=== PATIENT | female | born 1990 | race Caucasian/White ===

== ENCOUNTER 2019-03-29 00:58 | Emergency (ER) | payer MEDICAID ==
[2019-03-29] MEDS ORDERED: Ketorolac 60 MG/2 ML SDV IM ONE (01:43)
--- NOTE | 2019-03-29 01:47 | EDM.PDOC ---
ED HPI GENERAL MEDICAL PROBLEM - General Stated Complaint: MIGRAINE Time Seen by Provider: 03/29/19 00:58 Source of Information: Reports: Patient History Limitations: Reports: No Limitations - History of Present Illness INITIAL COMMENTS - FREE TEXT/NARRATIVE: 29 y.o.w.f with intermittent atypical migraine, came to ed with bitemporal H/ A and mild nausea. Pt had those issues several times in the past. Pt denies . Has mild nausea, h/a is rated as a 7/10. No photophobia, no trauma. No SOB, no CP or any other acute med issues. BP 112/71 Pulse 61, Temp 98.3 Pulse 100% on RA RR 15 Onset Date: 03/28/19 Onset Time: 22:00 Duration: Hour(s):, Constant Location: Reports: Head Quality: Reports: Ache, Dull, Same as Previous Episode Severity: Moderate Improves with: Reports: Medication Worsens with: Reports: Other (light) Context: Reports: Other Associated Symptoms: Reports: Other (nausea) ED ROS GENERAL - Review of Systems Review Of Systems: See Below Constitutional: Reports: No Symptoms HEENT: Reports: No Symptoms Respiratory: Reports: No Symptoms Cardiovascular: Reports: No Symptoms Endocrine: Reports: No Symptoms GI/Abdominal: Reports: Nausea : Reports: No Symptoms Musculoskeletal: Reports: No Symptoms Skin: Reports: No Symptoms Neurological: Reports: Headache Psychiatric: Reports: No Symptoms Hematologic/Lymphatic: Reports: No Symptoms Immunologic: Reports: No Symptoms - Physical Exam Exam: See Below Exam Limited By: No Limitations General Appearance: Alert, WD/WN, Mild Distress, Thin Eye Exam: Bilateral Eye: Normal Inspection Ears: Normal External Exam Nose: Normal Inspection, Normal Mucosa Throat/Mouth: Normal Inspection, Normal Lips, Normal Voice, No Airway Compromise Head Exam: Atraumatic, Normocephalic Neck: Normal Inspection, Supple, Non-Tender, Full Range of Motion Respiratory/Chest: No Respiratory Distress, Lungs Clear, Normal Breath Sounds, Chest Non-Tender Cardiovascular: Normal Peripheral Pulses, Regular Rate, Rhythm, No Edema, No Gallop, No Murmur GI/Abdominal: Normal Bowel Sounds, Soft, Non-Tender, No Organomegaly, No Abnormal Bruit, No Mass, Pelvis Stable (Female) Exam: Deferred Rectal (Female) Exam: Deferred Neuro Exam (Abbreviated): Alert, Oriented, CN II-XII Intact, Normal Cognition, Normal Gait Back Exam: Normal Inspection, Full Range of Motion Extremities: Normal Inspection, Normal Range of Motion, Non-Tender Psychiatric: Normal Affect, Normal Mood Skin Exam: Warm, Dry, Intact, Normal Color, No Rash Course - Vital Signs Text/Narrative:: 29 y.o.w.f with intermittent atypical migraine, came to ed with bitemporal H/ A and mild nausea. Pt had those issues several times in the past. Pt denies . Has mild nausea, h/a is rated as a 7/10. No photophobia, no trauma. No SOB, no CP or any other acute med issues. BP 112/71 Pulse 61, Temp 98.3 Pulse 100% on RA RR 15 PE: WNWD W F with H/A Impression: Tension H/A Tx: Zofran, Toradol Reexam: Pt improved 100% on RA Plan: D/C with instructions - Orders/Labs/Meds Meds: Medications Discontinued Medications Generic Name Dose Route Start Last Admin Trade Name Jose PRN Reason Stop Dose Admin Ketorolac Tromethamine 60 mg 03/29/19 01:43 03/29/19 02:05 Toradol IM 03/29/19 01:44 60 mg ONETIME ONE Administration Ondansetron HCl 8 mg 03/29/19 02:01 03/29/19 02:05 Zofran Odt PO 03/29/19 02:02 8 mg ONETIME ONE Administration Departure - Departure Time of Disposition: 02:02 Disposition: Home, Self-Care 01 Condition: Good Clinical Impression: Tension type headache Qualifiers: Headache chronicity pattern: unspecified pattern Intractability: not intractable Qualified Code(s): G44.209 - Tension-type headache, unspecified, not intractable - Discharge Information Referrals: PCP,Unknown [Primary Care Provider] - Forms: ED Return to Work/School Form Additional Instructions: Please continue your current meds, please f/u with your PMD, come back if your symptoms get worse acutely.
[2019-03-29] MEDS ORDERED: Ondansetron 8 MG Tab.DIS PO ONE (02:01)
== END 2019-03-29 02:10 | disposition home or self-care (01) ==
LOC: FB.ED 00:58
DX: G44.209 Tension-type headache, unspecified, not intractable (principal)
CPT/HCPCS: 96372; 99283; A9270; J1885

== ENCOUNTER 2019-04-10 21:56 | Emergency (ER) | payer MEDICAID ==
[2019-04-10] MEDS ORDERED: Ketorolac 60 MG/2 ML SDV IM ONE (23:46)
--- NOTE | 2019-04-10 23:48 | EDM.PDOC ---
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 She states this evening and has continued to worsen and it hurts when she walks. She also feels a little bit nauseous and notes that it hurts when she urinates. She has had a few chills and sweats, but no fever. She initially thought the pain was cramps since she hasn't changed her NuvaRing at this month and didn't take it out for a few days like she usually does. She has not noticed any urgency or burning with urination. She does not have any back or flank pain, no fever. She has no history of ovarian cysts. She did have one loose stool this afternoon and otherwise her bowels have been regular. She has an extensive history of bladder and kidney infections and a diagnosis of interstitial cystitis. She is not on any immunosuppressants. She is sexually active with one partner, states he is new. Has not been STD tested recently. No abnormal vaginal discharge. - Related Data Allergies Allergy/AdvReac Type Severity Reaction Status Date / Time cefaclor [From Ceclor] Allergy Cannot Verified 04/10/19 23:56 Remember levofloxacin [From Levaquin] Allergy Rash Verified 04/10/19 23:56 rizatriptan [From Maxalt] Allergy Nausea Verified 04/10/19 23:56 sumatriptan Allergy Nausea Verified 04/10/19 23:56 Home Meds: Home Meds .Cranberry 1 tab PO ASDIRECTED 03/30/19 [History] .Nuvaring Vaginal Ring 1 dose VAG ONETIME 03/30/19 [History] DULoxetine [Cymbalta] 60 mg PO DAILY 03/30/19 [History] LORazepam 1 mg PO ASDIRECTED PRN 03/30/19 [History] Loratadine 10 mg PO DAILY PRN 03/30/19 [History] Mirtazapine 7.5 mg PO BEDTIME 03/30/19 [History] Nitrofurantoin Macrocrystal [Macrodantin] 100 mg PO DAILY 03/30/19 [History] Omeprazole 20 mg PO DAILY 03/30/19 [History] Ondansetron HCl [Ondansetron] 4 mg PO Q8H 03/30/19 [History] Pentosan Polysulfate Sodium [Elmiron] 100 mg PO TID 03/30/19 [History] Prazosin [Minpress] 1 mg PO DAILY 03/30/19 [History] Sennosides/Docusate Sodium [Senexon-S Tablet] 1 each PO DAILY 03/30/19 [History] buPROPion HCl [Wellbutrin Xl] 300 mg PO DAILY 03/30/19 [History] busPIRone [Buspar] 10 mg PO BID 03/30/19 [History] Sulfamethoxazole/Trimethoprim [Bactrim Ds Tablet] 1 each PO BID 7 Days #14 tablet 04/11/19 [Rx] Past Medical History Gastrointestinal History: Reports: GERD Genitourinary History: Reports: UTI, Recurrent Other Genitourinary History: Interstitial cystitis. 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 ED EXAM, GENERAL - Physical Exam Exam: See Below Free Text/Narrative:: Gen.: Alert, pleasant not acutely distressed. Tubals are equal and reactive, neck is supple. Heart regular rate and rhythm, lungs are clear throughout. Abdomen positive bowel sounds, soft nondistended nontender except in the right lower quadrant, no rebound or guarding. Negative Ash's sign. Pelvic exam shows normal external female genitalia, cervix is visualized and there is a small amount of whitish physiologic discharge in the vaginal vault. Bimanual exam shows no cervical motion tenderness and very minimal tenderness in the right adnexal area which is difficult to reproduce reliably. The left side does not have any adnexal tenderness and no masses are palpable. Peripheral pulses + 2 in both the upper and lower extremities and there is no lower extremity edema. Her gait is normal and her strength is equal side to side. She does not have any abnormal skin rashes or lesions Course - Vital Signs Text/Narrative:: Initial impression- possible UTI but not really consistent symptoms, appendix, ovarian torsion or cyst rupture. Will get labs, urinalysis and test. Set up for pelvic and will do GC testing also - Orders/Labs/Meds Orders: Active Orders 24 hr Category Date Time Status CHLAMYDIA/GC AMPLIFICATION Urgent Lab 04/10/19 23:45 Received CHLAMYDIA/GC AMPLIFICATION Urgent Lab 04/11/19 00:28 Ordered CULTURE URINE [RM] Stat Lab 04/11/19 00:50 Ordered Labs: Laboratory Tests 04/10/19 04/10/19 04/10/19 Range/Units 23:05 23:05 23:05 WBC 11.8 (4.5-12.0) X10-3/uL RBC 4.49 (3.23-5.20) x10(6)uL Hgb 12.9 (11.5-15.5) g/dL Hct 38.1 (30.0-51.3) % MCV 84.7 (80-96) fL MCH 28.8 (27.7-33.6) pg MCHC 34.0 (32.2-35.4) g/dL RDW 13.6 (11.5-15.5) % Plt Count 187 (125-369) X10(3)uL MPV 11.7 H (7.4-10.4) fL Neut % (Auto) 63.7 (46-82) % Lymph % (Auto) 28.9 (13-37) % Peach % (Auto) 6.4 (4-12) % Eos % (Auto) 0 L (1.0-5.0) % Baso % (Auto) 1 (0-2) % Neut # (Auto) 7.5 (1.6-8.3) # Lymph # (Auto) 3.4 (0.6-5.0) # Peach # (Auto) 0.8 (0.0-1.3) # Eos # (Auto) 0.0 (0.0-0.8) # Baso # (Auto) 0.1 (0.0-0.2) # Sodium 141 (135-145) mmol/L Potassium 3.8 (3.5-5.3) mmol/L Chloride 107 (100-110) mmol/L Carbon Dioxide 25 (21-32) mmol/L BUN 11 (7-18) mg/dL Creatinine 0.9 (0.55-1.02) mg/dL Est Cr Clr Drug Dosing TNP Estimated GFR (MDRD) > 60 (>60) BUN/Creatinine Ratio 12.2 (9-20) Glucose 89 (80-116) mg/dL Calcium 9.1 (8.6-10.2) mg/dL Total Bilirubin 0.3 (0.1-1.3) mg/dL AST 16 (5-25) IU/L ALT 27 (12-36) U/L Alkaline Phosphatase 89 (56-112) IU/L C-Reactive Protein 1.8 H (0.5-0.9) mg/dL Total Protein 7.3 (6.0-8.0) g/dL Albumin 3.5 (3.5-5.2) g/dL Globulin 3.8 g/dL Albumin/Globulin Ratio 0.9 Urine Color (YELLOW) Urine Appearance (CLEAR) Urine pH (5.0-6.5) Ur Specific [place] (1.010-1.025) Urine Protein (NEGATIVE) mg/dL Urine Glucose (UA) (NORMAL) mg/dL Urine Ketones (NEGATIVE) mg/dL Urine Occult Blood (NEGATIVE) Urine Nitrite (NEGATIVE) Urine Bilirubin (NEGATIVE) Urine Urobilinogen (NEGATIVE) mg/dL Ur Leukocyte Esterase (NEGATIVE) Urine RBC (0-5) Urine WBC (0-5) Ur Squamous Epith Cells (NS,R,O) Urine Bacteria (NS) Urine HCG, Qual (NEGATIVE) 04/10/19 04/10/19 Range/Units 23:45 23:45 WBC (4.5-12.0) X10-3/uL RBC (3.23-5.20) x10(6)uL Hgb (11.5-15.5) g/dL Hct (30.0-51.3) % MCV (80-96) fL MCH (27.7-33.6) pg MCHC (32.2-35.4) g/dL RDW (11.5-15.5) % Plt Count (125-369) X10(3)uL MPV (7.4-10.4) fL Neut % (Auto) (46-82) % Lymph % (Auto) (13-37) % Peach % (Auto) (4-12) % Eos % (Auto) (1.0-5.0) % Baso % (Auto) (0-2) % Neut # (Auto) (1.6-8.3) # Lymph # (Auto) (0.6-5.0) # Peach # (Auto) (0.0-1.3) # Eos # (Auto) (0.0-0.8) # Baso # (Auto) (0.0-0.2) # Sodium (135-145) mmol/L Potassium (3.5-5.3) mmol/L Chloride (100-110) mmol/L Carbon Dioxide (21-32) mmol/L BUN (7-18) mg/dL Creatinine (0.55-1.02) mg/dL Est Cr Clr Drug Dosing Estimated GFR (MDRD) (>60) BUN/Creatinine Ratio (9-20) Glucose (80-116) mg/dL Calcium (8.6-10.2) mg/dL Total Bilirubin (0.1-1.3) mg/dL AST (5-25) IU/L ALT (12-36) U/L Alkaline Phosphatase (56-112) IU/L C-Reactive Protein (0.5-0.9) mg/dL Total Protein (6.0-8.0) g/dL Albumin (3.5-5.2) g/dL Globulin g/dL Albumin/Globulin Ratio Urine Color Yellow (YELLOW) Urine Appearance Slightly cloudy (CLEAR) Urine pH 5.0 (5.0-6.5) Ur Specific [place] 1.010 (1.010-1.025) Urine Protein Negative (NEGATIVE) mg/dL Urine Glucose (UA) Normal (NORMAL) mg/dL Urine Ketones Negative (NEGATIVE) mg/dL Urine Occult Blood Trace (NEGATIVE) Urine Nitrite Negative (NEGATIVE) Urine Bilirubin Negative (NEGATIVE) Urine Urobilinogen Normal (NEGATIVE) mg/dL Ur Leukocyte Esterase Moderate H (NEGATIVE) Urine RBC 0-5 (0-5) Urine WBC 40-50 H (0-5) Ur Squamous Epith Cells Moderate H (NS,R,O) Urine Bacteria Few H (NS) Urine HCG, Qual Negative (NEGATIVE) Meds: Medications Discontinued Medications Generic Name Dose Route Start Last Admin Trade Name Jose PRN Reason Stop Dose Admin Ketorolac Tromethamine 60 mg 04/10/19 23:46 04/10/19 23:55 Toradol IM 04/10/19 23:47 60 mg ONETIME ONE Administration Trimethoprim/Sulfamethoxazole 1 tab 04/11/19 00:46 04/11/19 00:55 Septra Ds PO 04/11/19 00:47 1 tab ONETIME ONE Administration - Re-Assessments/Exams Free Text/Narrative Re-Assessment/Exam: 04/11/19 pelvic exam completed, no signs of PID or abnormal vaginal discharge. Slight right adnexal tenderness but not marked. Labs reviewed, within normal limits except for mildly elevated CRP, test negative, urinalysis concerning for infection. Nitrates negative but she did urinate within the last hour prior to collection. Toradol shot given with some improvement in pain. She already has Zofran at home as well. Free Text/Narrative Re-Assessment/Exam: 04/11/19 discussed discharge home with treatment for UTI. She does not know of any past cultures which showed resistance, but states she usually needs a longer course than the standard. She is familiar with symptoms of pyelonephritis. Discussed that if her pain does not improve, she should follow up in clinic or call her regular doctor, if severe symptoms return to ER. We do not have ultrasound capability here over the weekend and I don't think a CT would give enough information. Very unlikely to be appendicitis given her normal white count. 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 7 day course prescribed. Departure - Departure Time of Disposition: 00:41 Disposition: Home, Self-Care 01 Condition: Good Clinical Impression: Cystitis - Discharge Information *PRESCRIPTION DRUG MONITORING PROGRAM REVIEWED*: Not Applicable *COPY OF PRESCRIPTION DRUG MONITORING REPORT IN PATIENT JAYJAY: Not Applicable Prescriptions: Sulfamethoxazole/Trimethoprim [Bactrim Ds Tablet] 1 each PO BID 7 Days #14 tablet Instructions: Urinary Tract Infection, Adult Referrals: PCP,None [Primary Care Provider] - Forms: ED Department Discharge Additional Instructions: start antibiotic - first dose given here, then pickup in morning and take twice daily until gone (max daily dose of this medication) drink LOTS of water pelvic US not available Saturday-- if still having pain -- call PCP or can be seen in walk-in clinic for them to set up somewhere else in town if symptoms of fever, vomiting, worsening nausea, back or flank pain, need to be re-evaluated by physician. - My Orders Last 24 Hours: My Active Orders 04/10/19 23:45 CHLAMYDIA/GC AMPLIFICATION Urgent 04/11/19 00:28 CHLAMYDIA/GC AMPLIFICATION Urgent 04/11/19 00:50 CULTURE URINE [RM] Stat - Assessment/Plan Last 24 Hours: My Active Orders 04/10/19 23:45 CHLAMYDIA/GC AMPLIFICATION Urgent 04/11/19 00:28 CHLAMYDIA/GC AMPLIFICATION Urgent 04/11/19 00:50 CULTURE URINE [RM] Stat
[2019-04-11] MEDS ORDERED: Sulfamethoxazole/Trimethoprim 800-160 MG Tab PO ONE (00:46)
[2019-04-15 10:12] LABS: CHLAMYDIA TRACHOMATIS, NAA Negative (Negative); NEISSERIA GONORRHOEAE, NAA Negative (Negative)
== END 2019-04-11 01:00 | disposition home or self-care (01) ==
LOC: FB.ED 21:56
DX: N30.90 Cystitis, unspecified without hematuria (principal); K21.9 Gastro-esophageal reflux disease without esophagitis; F41.9 Anxiety disorder, unspecified; Z88.1 Allergy status to other antibiotic agents; Z79.899 Other long term (current) drug therapy
CPT/HCPCS: 36415; 80053; 81001; 81025; 85025; 86140; 87086; 87088; 87186; 87491; 87591; 96372; 99283; A9270; J1885

== ENCOUNTER 2020-05-29 23:01 | Emergency (ER) | payer MEDICAID ==
[2020-05-29] MEDS ORDERED: Sodium Chloride 0.9% 10 ML Syringe FLUSH PRN (23:05)
[2020-05-29] MEDS ORDERED: LORazepam 2 MG/ML SDV IVPUSH STA (23:10)
[2020-05-29] MEDS ORDERED: Aspirin 81 MG Tab.Chew PO ONE (23:10)
[2020-05-29] MEDS ORDERED: Ketorolac 30 MG/ML SDV IVPUSH ONE (23:10)
[2020-05-29] MEDS ORDERED: Metoprolol Tartrate 5 MG/5 ML SDV IVPUSH ONE (23:25)
--- NOTE | 2020-05-29 23:25 | EDM.PDOC ---
ED HPI GENERAL MEDICAL PROBLEM - General Stated Complaint: CHEST PAIN Time Seen by Provider: 05/29/20 23:05 Source of Information: Reports: Patient History Limitations: Reports: No Limitations - History of Present Illness INITIAL COMMENTS - FREE TEXT/NARRATIVE: Patient presented to the ED because of chest pain,7/10 , over the left chest area. Sharp and pleuritic in character with associated dyspnea. there is no nausea/vomiting, fever,chills, or cough and cold. She was diagnosed with Covid 2 weeks ago. - Related Data Allergies Allergy/AdvReac Type Severity Reaction Status Date / Time cefaclor [From Ceclor] Allergy Cannot Verified 04/10/19 23:56 Remember levofloxacin [From Levaquin] Allergy Rash Verified 04/10/19 23:56 rizatriptan [From Maxalt] Allergy Nausea Verified 04/10/19 23:56 sumatriptan Allergy Nausea Verified 04/10/19 23:56 Home Meds: Home Meds .Cranberry 1 tab PO ASDIRECTED 03/30/19 [History] .Nuvaring Vaginal Ring 1 dose VAG ONETIME 03/30/19 [History] DULoxetine [Cymbalta] 60 mg PO DAILY 03/30/19 [History] LORazepam 1 mg PO ASDIRECTED PRN 03/30/19 [History] Loratadine 10 mg PO DAILY PRN 03/30/19 [History] Mirtazapine 7.5 mg PO BEDTIME 03/30/19 [History] Omeprazole 20 mg PO DAILY 03/30/19 [History] Pentosan Polysulfate Sodium [Elmiron] 100 mg PO TID 03/30/19 [History] Prazosin [Minpress] 1 mg PO DAILY 03/30/19 [History] Sennosides/Docusate Sodium [Senexon-S Tablet] 1 each PO DAILY 03/30/19 [History] buPROPion HCL [Wellbutrin Xl] 300 mg PO DAILY 03/30/19 [History] busPIRone [Buspar] 10 mg PO BID 03/30/19 [History] nitrofurantoin macrocrystaL [Macrodantin] 100 mg PO DAILY 03/30/19 [History] ondansetron HCL [Ondansetron] 4 mg PO Q8H 03/30/19 [History] Sulfamethoxazole/Trimethoprim [Bactrim Ds Tablet] 1 each PO BID 7 Days #14 tablet 04/11/19 [Rx] Past Medical History Gastrointestinal History: Reports: GERD Genitourinary History: Reports: UTI, Recurrent Other Genitourinary History: Interstitial cystitis. 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 Musculoskeletal History: Reports: Arthritis, Fibromyalgia Neurological History: Reports: Migraines Psychiatric History: Reports: Anxiety, PTSD Social & Family History - Family History Family Medical History: Noncontributory - Caffeine Use Caffeine Use: Reports: Coffee - Living Situation & Occupation Living situation: Reports: with Significant Other ( New partner) Occupation: Employed ED ROS GENERAL - Review of Systems Review Of Systems: See Below Constitutional: Reports: No Symptoms HEENT: Reports: No Symptoms Respiratory: Reports: No Symptoms Cardiovascular: Reports: Chest Pain Endocrine: Reports: No Symptoms GI/Abdominal: Reports: No Symptoms : Reports: No Symptoms Musculoskeletal: Reports: No Symptoms Skin: Reports: No Symptoms Neurological: Reports: No Symptoms Psychiatric: Reports: No Symptoms Hematologic/Lymphatic: Reports: No Symptoms ED EXAM, GENERAL - Physical Exam Exam: See Below Exam Limited By: No Limitations General Appearance: Alert, No Apparent Distress Ears: Normal External Exam Nose: Normal Inspection, Normal Mucosa Throat/Mouth: Normal Inspection, Normal Lips, Normal Teeth, Normal Gums Head: Atraumatic, Normocephalic Neck: Normal Inspection, Supple, Non-Tender, Full Range of Motion Respiratory/Chest: No Respiratory Distress, Lungs Clear, Normal Breath Sounds Cardiovascular: Normal Peripheral Pulses, Regular Rate, Rhythm, No Edema, No Gallop, No JVD, No Murmur, Tachycardia GI/Abdominal: Normal Bowel Sounds, Soft, Non-Tender, No Organomegaly Back Exam: Normal Inspection, Full Range of Motion Course - Vital Signs Text/Narrative:: Labs/EKG/CXR result was discussed with patient ASA 24 mg p[o x1 Ativan 1 mg IV x1 Toradol 30 mg IV x1 - Orders/Labs/Meds Orders: Active Orders 24 hr Category Date Time Status EKG Documentation Completion [RC] ASDIRECTED Care 05/29/20 23:07 Active Chest 1V Frontal [CR] Stat Exams 05/29/20 23:06 Ordered Sodium Chloride 0.9% [Saline Flush] Med 05/29/20 23:05 Active 10 ml FLUSH ASDIRECTED PRN Saline Lock Insert [OM.PC] Routine Oth 05/29/20 23:05 Ordered EKG 12 Lead [EK] Routine Ther 05/29/20 23:06 Ordered Medication Orders Sodium Chloride (Saline Flush) 10 ml FLUSH ASDIRECTED PRN PRN Reason: Keep Vein Open Labs: Laboratory Tests 05/29/20 05/29/20 05/29/20 Range/Units 23:15 23:15 23:15 WBC 10.6 (4.5-12.0) X10-3/uL RBC 4.77 (3.23-5.20) x10(6)uL Hgb 13.4 (11.5-15.5) g/dL Hct 41.8 (30.0-51.3) % MCV 87.8 (80-96) fL MCH 28.0 (27.7-33.6) pg MCHC 31.9 L (32.2-35.4) g/dL RDW 13.1 (11.5-15.5) % Plt Count 133 (125-369) X10(3)uL MPV 10.7 H (7.4-10.4) fL Add Manual Diff Yes Neutrophils % (Manual) 29 L (46-82) % Lymphocytes % (Manual) 65 H (13-37) % Monocytes % (Manual) 3 L (4-12) % Eosinophils % (Manual) 2 (0-5) % Basophils % (Manual) 1 (0-2) % Sodium 140 (135-145) mmol/L Potassium 4.0 (3.5-5.3) mmol/L Chloride 103 (100-110) mmol/L Carbon Dioxide 27 (21-32) mmol/L BUN 8 (7-18) mg/dL Creatinine 0.9 (0.55-1.02) mg/dL Est Cr Clr Drug Dosing TNP Estimated GFR (MDRD) > 60 (>60) BUN/Creatinine Ratio 8.9 L (9-20) Glucose 92 (80-116) mg/dL Calcium 8.5 L (8.6-10.2) mg/dL Total Bilirubin 0.3 (0.1-1.3) mg/dL AST 18 D (5-25) IU/L ALT 13 D (12-36) U/L Alkaline Phosphatase 89 (56-112) IU/L Troponin I 5.0 (4.0-60.3) pg/mL Total Protein 7.8 (6.0-8.0) g/dL Albumin 3.6 (3.5-5.2) g/dL Globulin 4.2 g/dL Albumin/Globulin Ratio 0.9 Meds: Medications Generic Name Dose Route Start Last Admin Trade Name Cuateq PRN Reason Stop Dose Admin Sodium Chloride 10 ml 05/29/20 23:05 Saline Flush FLUSH ASDIRECTED PRN Keep Vein Open Discontinued Medications Generic Name Dose Route Start Last Admin Trade Name Jose PRN Reason Stop Dose Admin Aspirin 324 mg 05/29/20 23:10 Aspirin PO 05/29/20 23:11 ONETIME ONE Ketorolac Tromethamine 30 mg 05/29/20 23:10 Toradol IVPUSH 05/29/20 23:11 ONETIME ONE Lorazepam 1 mg 05/29/20 23:10 Ativan IVPUSH 05/29/20 23:11 NOW STA Metoprolol Tartrate 5 mg 05/29/20 23:25 Lopressor IVPUSH 05/29/20 23:26 ONETIME ONE Departure - Departure Time of Disposition: 00:30 Disposition: Home, Self-Care 01 Condition: Good Clinical Impression: Atypical chest pain, Anxiety Instructions: Nonspecific Chest Pain, Adult Additional Instructions: Please read discharge instructions on atypical chest pain and anxiety Take Naproxen 500 mg Twice daily for 7 days 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
[2020-05-30] MEDS ORDERED: Morphine 2 MG/ML SYRINGE IVPUSH ONE (00:13)
== END 2020-05-30 00:53 | disposition home or self-care (01) ==
LOC: FB.ED 23:01
DX: F41.9 Anxiety disorder, unspecified (principal); K21.9 Gastro-esophageal reflux disease without esophagitis; Z88.1 Allergy status to other antibiotic agents; Z88.8 Allergy status to other drugs, medicaments and biological substances; Z79.899 Other long term (current) drug therapy
CPT/HCPCS: 36415; 71045; 80053; 84484; 85025; 93005; 96374; 96375; 99285; A9270; J1885; J2060; J2270

== ENCOUNTER 2020-08-21 21:39 | Emergency (ER) | payer MEDICAID ==
--- NOTE | 2020-08-21 22:39 | EDM.PDOC ---
ED HPI GENERAL MEDICAL PROBLEM - General Chief Complaint: Neurological Problem Stated Complaint: seizure Time Seen by Provider: 08/21/20 22:10 Source of Information: Reports: Patient History Limitations: Reports: No Limitations - History of Present Illness INITIAL COMMENTS - FREE TEXT/NARRATIVE: States she had COVID in April: no concerns over that in last few months has be having seizures bid every week. Was seen by a neurologist and started on seizure med ( 2 weeks) has not has seizure till now states today she had migraine this am ( was normal migraine), Improved but this she went to lay down and then woke up with headache and the ambulance ready to take her to ER does not seem to recall anything states she has pain and numbness on the right side , was able to lift the right arm was not able to lift the left arm may have fallen on the right side and so has pain Onset: Today Onset Date: 08/21/20 Duration: Getting Worse Associated Symptoms: Reports: Headaches, Malaise, Weakness (states weakness on the right side of the body) front head Pain Score (Numeric/FACES): 6 - Related Data Allergies Allergy/AdvReac Type Severity Reaction Status Date / Time cefaclor [From Ceclor] Allergy Cannot Verified 04/10/19 23:56 Remember levofloxacin [From Levaquin] Allergy Rash Verified 04/10/19 23:56 rizatriptan [From Maxalt] Allergy Nausea Verified 04/10/19 23:56 sumatriptan Allergy Nausea Verified 04/10/19 23:56 Home Meds: Home Meds .Cranberry 1 tab PO ASDIRECTED 03/30/19 [History] .Nuvaring Vaginal Ring 1 dose VAG ONETIME 03/30/19 [History] DULoxetine [Cymbalta] 60 mg PO DAILY 03/30/19 [History] LORazepam 1 mg PO ASDIRECTED PRN 03/30/19 [History] Loratadine 10 mg PO DAILY PRN 03/30/19 [History] Mirtazapine 7.5 mg PO BEDTIME 03/30/19 [History] Omeprazole 20 mg PO DAILY 03/30/19 [History] Pentosan Polysulfate Sodium [Elmiron] 100 mg PO TID 03/30/19 [History] Prazosin [Minpress] 1 mg PO DAILY 03/30/19 [History] Sennosides/Docusate Sodium [Senexon-S Tablet] 1 each PO DAILY 03/30/19 [History] buPROPion HCL [Wellbutrin Xl] 300 mg PO DAILY 03/30/19 [History] busPIRone [Buspar] 10 mg PO BID 03/30/19 [History] nitrofurantoin macrocrystaL [Macrodantin] 100 mg PO DAILY 03/30/19 [History] ondansetron HCL [Ondansetron] 4 mg PO Q8H 03/30/19 [History] Sulfamethoxazole/Trimethoprim [Bactrim Ds Tablet] 1 each PO BID 7 Days #14 tablet 04/11/19 [Rx] Naproxen 500 mg PO BID #15 tablet 05/29/20 [Rx] Past Medical History HEENT History: Reports: Impaired Vision Gastrointestinal History: Reports: GERD Genitourinary History: Reports: UTI, Recurrent Other Genitourinary History: Interstitial cystitis. Recurrent UTI MUSIC SPECIALIST History: Reports: Spontaneous Musculoskeletal History: Reports: Arthritis, Fibromyalgia Neurological History: Reports: Migraines Psychiatric History: Reports: Anxiety, PTSD - Infectious Disease History Infectious Disease History: Reports: Chicken Pox Social & Family History - Family History Family Medical History: No Pertinent Family History - Caffeine Use Caffeine Use: Reports: Coffee - Living Situation & Occupation Living situation: Reports: with Significant Other ( New partner) Occupation: Employed ED ROS GENERAL - Review of Systems Review Of Systems: See Below Constitutional: Reports: Fatigue, Decreased Appetite. Denies: Fever, Chills, Malaise, Weakness HEENT: Reports: No Symptoms Respiratory: Reports: No Symptoms Cardiovascular: Reports: No Symptoms Endocrine: Reports: No Symptoms GI/Abdominal: Reports: Abdominal Pain, Constipation, Decreased Appetite. Denies: Nausea, Vomiting : Reports: No Symptoms Musculoskeletal: Reports: No Symptoms Skin: Reports: No Symptoms Neurological: Reports: Dizziness, Seizure. Denies: Trouble Speaking, Change in Speech, Gait Disturbance Psychiatric: Reports: No Symptoms Hematologic/Lymphatic: Reports: No Symptoms Immunologic: Reports: No Symptoms ED EXAM, NEURO - Physical Exam Exam: See Below Exam Limited By: No Limitations General Appearance: Alert, WD/WN, No Apparent Distress, Lethargic Ears: Normal External Exam Nose: Normal Inspection Throat/Mouth: Normal Oropharynx Head Exam: Atraumatic, Normocephalic Neck: Supple, Non-Tender Respiratory/Chest: No Respiratory Distress, Lungs Clear Cardiovascular: Normal Peripheral Pulses, Regular Rate, Rhythm GI/Abdominal: Soft, Non-Tender Neurological: Alert, Normal Mood/Affect Extremities: Normal Inspection Skin Exam: Warm Course - Vital Signs Last Recorded V/S: Last Vital Signs Temp 36.6 C 08/21/20 21:39 Pulse 85 08/21/20 21:39 Resp 20 08/21/20 21:39 BP 125/75 08/21/20 21:39 Pulse Ox 99 08/21/20 21:39 - Orders/Labs/Meds Orders: Active Orders 24 hr Category Date Time Status EKG Documentation Completion [RC] ASDIRECTED Care 08/21/20 22:07 Active Abdomen Pelvis w Cont [CT] Stat Exams 08/21/20 22:30 Taken Head wo Cont [CT] Stat Exams 08/21/20 22:05 Taken Magnesium Citrate [Citrate of Magnesia] Med 08/22/20 01:03 Once 296 ml PO ONETIME ONE EKG 12 Lead [EK] Routine Ther 08/21/20 22:07 Ordered Medication Orders Magnesium Citrate (Citrate Of Magnesia) 296 ml PO ONETIME ONE Stop: 08/22/20 01:04 Labs: Laboratory Tests 08/21/20 08/21/20 08/21/20 Range/Units 22:40 22:40 22:40 WBC 10.0 (3.0-10.3) x10-3/uL RBC 4.39 (3.60-5.20) x10(6)uL Hgb 12.6 (11.4-15.5) g/dL Hct 38.3 (34.2-48.2) % MCV 87.2 (76.7-100.5) fL MCH 28.6 (23.9-33.9) pg MCHC 32.8 (31.9-34.8) g/dL RDW 12.8 (12.3-16.5) % Plt Count 206 (151-488) x10(3)uL MPV 10.7 (7.1-12.4) fL Neut % (Auto) 44.3 (30.8-76.2) % Lymph % (Auto) 42.9 (18.4-52.1) % Glynn % (Auto) 10.6 (4.4-15.7) % Eos % (Auto) 1.4 (0.6-8.1) % Baso % (Auto) 0.8 (0.2-1.5) % Neut # (Auto) 4.4 (1.5-6.3) x10-3/uL Lymph # (Auto) 4.3 (1.0-4.4) x10-3/uL Glynn # (Auto) 1.1 H (0.3-1.0) x10-3/uL Eos # (Auto) 0.1 (0.0-0.8) x10-3/uL Baso # (Auto) 0.1 (0.0-0.1) x10-3/uL PT 9.6 (9.0-11.1) sec INR 0.88 L (1.00-1.24) Sodium 140 (135-145) mmol/L Potassium 3.8 (3.5-5.3) mmol/L Chloride 104 (100-110) mmol/L Carbon Dioxide 25 (21-32) mmol/L BUN 14 (7-18) mg/dL Creatinine 0.8 (0.55-1.02) mg/dL Est Cr Clr Drug Dosing TNP Estimated GFR (MDRD) > 60 (>60) BUN/Creatinine Ratio 17.5 (9-20) Glucose 98 (80-116) mg/dL Calcium 8.6 (8.6-10.2) mg/dL Total Bilirubin 0.2 (0.1-1.3) mg/dL AST 11 D (5-25) IU/L ALT 14 (12-36) U/L Alkaline Phosphatase 103 (56-112) IU/L Total Protein 7.0 (6.0-8.0) g/dL Albumin 3.3 L (3.5-5.2) g/dL Globulin 3.7 g/dL Albumin/Globulin Ratio 0.9 Urine Color (YELLOW) Urine Appearance (CLEAR) Urine pH (5.0-6.5) Ur Specific [place] (1.010-1.025) Urine Protein (NEGATIVE) mg/dL Urine Glucose (UA) (NORMAL) mg/dL Urine Ketones (NEGATIVE) mg/dL Urine Occult Blood (NEGATIVE) Urine Nitrite (NEGATIVE) Urine Bilirubin (NEGATIVE) Urine Urobilinogen (NEGATIVE) mg/dL Ur Leukocyte Esterase (NEGATIVE) Urine RBC (0-5) Urine WBC (0-5) Ur Squamous Epith Cells (NS,R,O) Urine Bacteria (NS) Urine HCG, Qual (NEGATIVE) 08/21/20 08/21/20 Range/Units 23:09 23:09 WBC (3.0-10.3) x10-3/uL RBC (3.60-5.20) x10(6)uL Hgb (11.4-15.5) g/dL Hct (34.2-48.2) % MCV (76.7-100.5) fL MCH (23.9-33.9) pg MCHC (31.9-34.8) g/dL RDW (12.3-16.5) % Plt Count (151-488) x10(3)uL MPV (7.1-12.4) fL Neut % (Auto) (30.8-76.2) % Lymph % (Auto) (18.4-52.1) % Glynn % (Auto) (4.4-15.7) % Eos % (Auto) (0.6-8.1) % Baso % (Auto) (0.2-1.5) % Neut # (Auto) (1.5-6.3) x10-3/uL Lymph # (Auto) (1.0-4.4) x10-3/uL Glynn # (Auto) (0.3-1.0) x10-3/uL Eos # (Auto) (0.0-0.8) x10-3/uL Baso # (Auto) (0.0-0.1) x10-3/uL PT (9.0-11.1) sec INR (1.00-1.24) Sodium (135-145) mmol/L Potassium (3.5-5.3) mmol/L Chloride (100-110) mmol/L Carbon Dioxide (21-32) mmol/L BUN (7-18) mg/dL Creatinine (0.55-1.02) mg/dL Est Cr Clr Drug Dosing Estimated GFR (MDRD) (>60) BUN/Creatinine Ratio (9-20) Glucose (80-116) mg/dL Calcium (8.6-10.2) mg/dL Total Bilirubin (0.1-1.3) mg/dL AST (5-25) IU/L ALT (12-36) U/L Alkaline Phosphatase (56-112) IU/L Total Protein (6.0-8.0) g/dL Albumin (3.5-5.2) g/dL Globulin g/dL Albumin/Globulin Ratio Urine Color Yellow (YELLOW) Urine Appearance Clear (CLEAR) Urine pH 5.0 (5.0-6.5) Ur Specific [place] 1.010 (1.010-1.025) Urine Protein Negative (NEGATIVE) mg/dL Urine Glucose (UA) Normal (NORMAL) mg/dL Urine Ketones Negative (NEGATIVE) mg/dL Urine Occult Blood Negative (NEGATIVE) Urine Nitrite Negative (NEGATIVE) Urine Bilirubin Negative (NEGATIVE) Urine Urobilinogen Normal (NEGATIVE) mg/dL Ur Leukocyte Esterase Negative (NEGATIVE) Urine RBC 0-5 (0-5) Urine WBC 0-5 (0-5) Ur Squamous Epith Cells Few H (NS,R,O) Urine Bacteria Moderate H (NS) Urine HCG, Qual Negative (NEGATIVE) Meds: Medications Generic Name Dose Route Start Last Admin Trade Name Freq PRN Reason Stop Dose Admin Magnesium Citrate 296 ml 08/22/20 01:03 Citrate Of Magnesia PO 08/22/20 01:04 ONETIME ONE Discontinued Medications Generic Name Dose Route Start Last Admin Trade Name Freq PRN Reason Stop Dose Admin Diatrizoate Meglum/Diatrizoate Sod 30 ml 08/21/20 23:26 08/21/20 23:55 Gastrografin 37% PO 08/21/20 23:27 30 ml . DIRECTED ONE Administration Sodium Chloride 1,000 mls @ 999 mls/hr 08/21/20 22:06 08/21/20 23:05 Normal Saline IV 08/21/20 23:06 999 mls/hr .BOLUS ONE Administration Iopamidol 100 ml 08/21/20 23:26 08/21/20 23:55 Isovue-370 (76%) IV 08/21/20 23:27 86 ml . DIRECTED ONE Administration - Re-Assessments/Exams Free Text/Narrative Re-Assessment/Exam: 08/22/20 01:[address] head to check for CVA : negative DARLING : ? post ictal pt was a bit drowsy CT abd done : negative Keppra level pending Departure - Departure Time of Disposition: 01:15 Disposition: Home, Self-Care 01 Condition: Good Clinical Impression: Seizure disorder, Constipation by delayed colonic transit - Discharge Information *PRESCRIPTION DRUG MONITORING PROGRAM REVIEWED*: Not Applicable *COPY OF PRESCRIPTION DRUG MONITORING REPORT IN PATIENT JAYJAY: Not Applicable Referrals: PCP,None [Primary Care Provider] - Forms: ED Department Discharge Additional Instructions: 1) Make appointment to see your Neurologist for further evaluation of seizure disorder 2)Continue with all other medications with no changes Sepsis Event Note (ED) - Focused Exam Vital Signs: Vital Signs Temp Pulse Resp BP Pulse Ox 08/21/20 21:39 36.6 C 85 20 125/75 99 - My Orders Last 24 Hours: My Active Orders 08/21/20 22:05 Head wo Cont [CT] Stat 08/21/20 22:07 EKG Documentation Completion [RC] ASDIRECTED EKG 12 Lead [EK] Routine 08/21/20 22:30 Abdomen Pelvis w Cont [CT] Stat 08/22/20 01:03 Magnesium Citrate [Citrate of Magnesia] 296 ml PO ONETIME ONE - Assessment/Plan Last 24 Hours: My Active Orders 08/21/20 22:05 Head wo Cont [CT] Stat 08/21/20 22:07 EKG Documentation Completion [RC] ASDIRECTED EKG 12 Lead [EK] Routine 08/21/20 22:30 Abdomen Pelvis w Cont [CT] Stat 08/22/20 01:03 Magnesium Citrate [Citrate of Magnesia] 296 ml PO ONETIME ONE
[2020-08-21] MEDS: Sodium Chloride 0.9% 1,000 ML IV ONE (23:05)
[2020-08-21] MEDS: Iopamidol 755 Mg/ML 100 ML Bottle IV ONE (23:55)
[2020-08-21] MEDS: Diatrizoate Meglumine/Diatrizoate Sodium 37% 30 ML Bottle PO ONE (23:55)
[2020-08-22] MEDS: Magnesium Citrate Solution 296 ML Bottle PO ONE (01:25)
== END 2020-08-22 01:26 | disposition home or self-care (01) ==
LOC: FB.ED 21:39
DX: G40.909 Epilepsy, unspecified, not intractable, without status epilepticus (principal); K59.09 Other constipation; K21.9 Gastro-esophageal reflux disease without esophagitis; G43.909 Migraine, unspecified, not intractable, without status migrainosus; G44.89 Other headache syndrome; F43.10 Post-traumatic stress disorder, unspecified; F41.9 Anxiety disorder, unspecified; Z88.1 Allergy status to other antibiotic agents; Z88.8 Allergy status to other drugs, medicaments and biological substances; Z79.899 Other long term (current) drug therapy
CPT/HCPCS: 36415; 70450; 74177; 80053; 80177; 81001; 81025; 85025; 85610; 93005; 99284-25; A9270-GY; J7030; Q9963; Q9967

== ENCOUNTER 2020-12-08 12:40 | Emergency (ER) | payer MEDICAID ==
[2020-12-08] MEDS ORDERED: Sodium Chloride 0.9% 10 ML Syringe FLUSH PRN (13:14)
[2020-12-08] MEDS ORDERED: Morphine 2 MG/ML SYRINGE IVPUSH ONE (13:17)
[2020-12-08] MEDS ORDERED: Ondansetron 4 MG/2 ML SDV IVPUSH STA (13:19)
[2020-12-08] MEDS ORDERED: Sodium Chloride 0.9% 1,000 ML IV SCH (13:30)
[2020-12-08] MEDS ORDERED: Ketorolac 30 MG/ML SDV IVPUSH STA (13:57)
[2020-12-08] MEDS ORDERED: Iopamidol 755 Mg/ML 100 ML Bottle IV ONE (14:34)
--- NOTE | 2020-12-08 15:46 | CT ---
INDICATION: Diffuse abdominal pain, worse on the right side, upper and lower, started this AM. White blood count 16,500. CT ABDOMEN AND PELVIS WITH CONTRAST: Spiral 3.75 mm axial sections were obtained through the abdomen and pelvis with oral and IV contrast (100 mL Isovue-370 at 2 mL per second) with sagittal and coronal reconstructions 12/08/20 and compared with 08/21/20. Total exam DLP was 1436.37 mGy-cm. Lower lung hu and pleural spaces visualized appeared normal. The heart appeared normal in size. No definite pericardial effusion was seen. The liver, slightly distended appearing gallbladder, adrenal glands, kidneys and ureters, spleen, and pancreas, appear to be normal. Stomach was not distended making it difficult to exclude gastric abnormalities. No retroperitoneal mass was seen. The appendix was not visualized and was not visualized on the previous examination. No evidence of free air or bowel obstruction was seen. There is some metallic density in the bowel which may represent medication and is especially prominent in what appears to be a loop of distal ileum, just above the terminal ileum area in the right lower quadrant - anteriorly. There is in this loop of bowel appearance of thickening of the wall. This could be on the basis of an inflammatory process or infectious process and should be correlated clinically. The bowel was otherwise unremarkable except to note mildly distended colon in general filled with gas and stool, which is not significantly different than on the previous examination suggesting a mild degree of constipation. No additional organomegaly, mass lesions, or free fluid collections were identified in the abdomen or pelvis No specific bony abnormality was identified. IMPRESSION: 1. Except for a loop of what appears to be distal ileum near the terminal ileum with slightly thickened wall suggested, normal CT of the abdomen and pelvis with oral and IV contrast. 2. If gallbladder abnormality is suspected clinically, gallbladder ultrasound is recommended for further evaluation. 3. The appendix was not visualized on this examination or the previous examination. Report was called to Dr. Rand at 1507 hours, 12/08/20. [facility] CENTERJasmina
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
== END 2020-12-08 16:05 | disposition home or self-care (01) ==
LOC: FB.ED 12:40
DX: K21.9 Gastro-esophageal reflux disease without esophagitis (principal); K59.00 Constipation, unspecified; B37.3 Candidiasis of vulva and vagina; M06.9 Rheumatoid arthritis, unspecified; Z79.899 Other long term (current) drug therapy; Z88.1 Allergy status to other antibiotic agents; Z88.8 Allergy status to other drugs, medicaments and biological substances
CPT/HCPCS: 36415; 74177; 80053; 81025; 82150; 83690; 84702; 85025; 96374; 96375; 99284; J1885; J2405; J7030; Q9967

== ENCOUNTER 2022-08-15 12:59 | Emergency (ER) | payer MEDICAID ==
[2022-08-15] MEDS ORDERED: Ondansetron 4 MG Tab.DIS PO STA (14:06)
[2022-08-15 14:28] LABS: ESTIMATED GFR 78 mL/min (>60)
== END 2022-08-15 15:35 | disposition home or self-care (01) ==
LOC: FB.ED 12:59
DX: N39.0 Urinary tract infection, site not specified (principal); K21.9 Gastro-esophageal reflux disease without esophagitis; R11.2 Nausea with vomiting, unspecified; B37.31 Acute candidiasis of vulva and vagina; Z88.1 Allergy status to other antibiotic agents; Z88.8 Allergy status to other drugs, medicaments and biological substances; Z79.899 Other long term (current) drug therapy
CPT/HCPCS: 36415; 80053; 81001; 85025; 87086; 87088; 87186; 99284; Q0162